=== PATIENT | female | born 1960 | race Caucasian/White ===

== ENCOUNTER 2022-01-31 03:14 | Emergency (ER) | payer BC, OTHER ==
[~2022-01-31] VITALS: Ht 167.7 cm; Wt 60.3 kg
[2022-01-31 03:53] LABS: COLOR,URINE YELLOW
[2022-01-31 03:54] LABS: CLARITY,URINE CLEAR; GLUCOSE, URINE (UA) NEGATIVE (NEGATIVE); KETONES,URINE NEGATIVE (NEGATIVE); LEUKOCYTE ESTERASE ,URINE 2+ (NEGATIVE); NITRITE,URINE NEGATIVE (NEGATIVE); PH,URINE 6.5 (5-9); PROTEIN,URINE TRACE (NEGATIVE)
[2022-01-31 03:55] LABS: BILIRUBIN,URINE 1+ (NEGATIVE)
--- NOTE | 2022-01-31 03:56 | ED GU-Female ---
General Chief Complaint: - Reproductive Stated Complaint: BURNING WHILE URINATING,FREQUENT URINATION Source: patient History of Present Illness Date Seen by Provider: Jan 31, 2022 Time Seen by Provider: 03:23 Initial Comments PT ARRIVES VIA POV C/O UTI SYMPTOMS SINCE WEDNESDAY MORNING 01/29/22--MUCH PAIN AND BURNING, URGENCY AND FREQUENCY ON URINATION, INCOMPLETE EMPTYING, AND LOWER ABDOMINAL DISCOMFORT NO BACK PAIN NO FEVER NO NAUSEA/VOMITING PT HAS BEEN AT [facility] FOR A COUPLE OF DAYS THIS WEEK HAS BEEN SKIING, FLOATING ON A RAFT ON THE TROY ALL DAY ON WEDNESDAY WOKE UP WEDNESDAY MORNING WITH THESE SYMPTOMS HAS NOT BEEN ABLE TO SLEEP OR SIT DUE TO DISCOMFORT HAS NOT HAD A UTI IN MANY YEARS AND WAS NEVER THIS BAD NO VAGINAL SYMPTOMS NO RELIEF WITH [facility] Wednesday. PT IS HERE VISITING FOR THE WEEKEND FROM [place]--FOR MULTIPLE REUNIONS Allergies and Home Medications Allergies Coded Allergies: No Known Drug Allergies (Unverified , 01/31/22) Patient Home Medication List Home Medication List Reviewed: Yes Ciprofloxacin HCl (Ciprofloxacin HCl) 500 Mg Tablet, 500 MG PO BID Prescribed by: JL ESQUIVEL on 01/31/22404 Ketorolac Tromethamine (Ketorolac Tromethamine) 10 Mg Tablet, 10 MG PO Q6H Prescribed by: JL ESQUIVEL on 01/31/22404 Phenazopyridine HCl (Pyridium) 200 Mg Tablet, 1 TAB PO TID Prescribed by: JL ESQUIVEL on 01/31/22404 Review of Systems Review of Systems Constitutional: no symptoms reported Respiratory: no symptoms reported Cardiovascular: no symptoms reported Genitourinary: see HPI Musculoskeletal: no symptoms reported Skin: no symptoms reported Psychiatric/Neurological: No Symptoms Reported Past Hstmycp-[id number]-[id number] Hx Patient Social History Tobacco Use?: No Use of E-Cig and/or Vaping dev: No Substance use?: No Alcohol Use?: No Pt feels they are or have been: No Immunizations Up To Date Influenza Vaccine Up-to-Date: Yes; Up-to-Date Past Medical History Surgeries: Yes Breast, Section, Tubal Ligation Respiratory: No Cardiac: No Neurological: No : 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 oz. kg; BMI Method: General Appearance: WD/WN, no apparent distress, other (STANDING UP, PACING, HOLDING LOWER ABDOMEN/GENITAL AREA. LOOKS UNCOMFORTABLE) Cardiovascular: regular rate, rhythm, no murmur Respiratory: normal breath sounds Gastrointestinal: normal bowel sounds, soft, tenderness (MILD SUPRAPUBIC TENDERNESS) Back: no CVA tenderness Extremities: normal inspection, normal capillary refill Neurologic/Psychiatric: no motor/sensory deficits, alert, oriented x 3 Skin: normal color, warm/dry Progress/Results/Core Measures Suspected Sepsis SIRS Temperature: Pulse: Respiratory Rate: Blood Pressure / Mean: Results/Orders Lab Results Laboratory Tests Test 01/31/22 03:35 Range/Units Urine Color YELLOW Urine Clarity CLEAR Urine pH 6.5 5-9 Urine Specific [place] 1.020 1.016-1.022 Urine Protein TRACE H NEGATIVE Urine Glucose (UA) NEGATIVE NEGATIVE Urine Ketones NEGATIVE NEGATIVE Urine Nitrite NEGATIVE NEGATIVE Urine Bilirubin 1+ H NEGATIVE Urine Urobilinogen 0.2 < = 1.0 MG/DL Urine Leukocyte Esterase 2+ H NEGATIVE Urine RBC (Auto) 2+ H NEGATIVE Urine RBC 2-5 H /HPF Urine WBC 10-25 H /HPF Urine Crystals NONE /LPF Urine Bacteria FEW H /HPF Urine Casts NONE /LPF Urine Mucus NEGATIVE /LPF Urine Culture Indicated YES My Orders Orders - JL ESQUIVEL DO Ua Culture If Indicated (01/31/22 03:22) Urine Culture (01/31/22 03:35) Ceftriaxone (Rocephin) (01/31/22 04:00) Ketorolac Injection (Toradol Injection) (01/31/22 04:00) Phenazopyridine Tablet (Pyridium Tablet) (01/31/22 04:00) Lidocaine 1% Inj 20 Ml (Xylocaine 1% Inj (01/31/22 04:00) Medications Given in ED Current Medications Medications Dose Ordered Sig/Kvng Route Start Time Stop Time Status Last Admin Dose Admin Ceftriaxone Sodium 1,000 mg ONCE ONCE IM 01/31/22 04:00 01/31/22 04:04 DC 01/31/22 04:13 1,000 MG Ketorolac Tromethamine 60 mg ONCE ONCE IM 01/31/22 04:00 01/31/22 04:04 DC 01/31/22 04:14 60 MG Lidocaine HCl 2.1 ml ONCE ONCE INJ 01/31/22 04:00 01/31/22 04:04 DC 01/31/22 04:14 2.1 ML Phenazopyridine HCl 200 mg ONCE ONCE PO 01/31/22 04:00 01/31/22 04:04 DC 01/31/22 04:13 200 MG Vital Signs/I&O 01/31/22 03:41 Temp 36.4 Pulse 80 Resp 18 B/P (MAP) Pulse Ox 99 O2 Delivery Room Air Capillary Refill : Departure Impression Primary Impression: Urinary tract infection Disposition: HOME, SELF-CARE Condition: Stable Departure-Patient Inst. Decision time for Depature: 04:03 Patient Instructions: Urinary Tract Infection, Adult (DC) Add. Discharge Instructions: LOTS OF CLEAR LIQUIDS--NO COFFEE, POP OR TEA TYLENOL NEEDED FOR PAIN FOLLOW UP WITH YOUR DR IN 2-3 DAYS IF NO BETTER, RETURN TO ER IF WORSE All discharge instructions reviewed with patient and/or family. Voiced understanding. Scripts Ketorolac Tromethamine (Ketorolac Tromethamine) 10 Mg Tablet 10 MG PO Q6H for Pain, #15 TAB Prov: JL ESQUIVEL DO 01/31/22 Phenazopyridine HCl (Pyridium) 200 Mg Tablet 1 TAB PO TID, #15 TAB Prov: JL ESQUIVEL DO 01/31/22 Ciprofloxacin HCl (Ciprofloxacin HCl) 500 Mg Tablet 500 MG PO BID, #14 TAB Prov: APOLINAR ESQUIVELA Tangela DO 01/31/22 JL ESQUIVEL DO Jan 31, 2022 03:56
[2022-01-31 03:58] LABS: BACTERIA,URINE FEW /HPF
[2022-01-31] MEDS ORDERED: PHENAZOPYRIDINE 100 MG (PYRIDIUM) TABLET PO ONE (04:00)
[2022-01-31] MEDS ORDERED: LIDOCAINE 1% INJ 20 ML VIAL INJ ONE (04:00)
[2022-01-31] MEDS ORDERED: KETOROLAC 60 MG/2 ML VIAL IM ONE (04:00)
[2022-01-31] MEDS ORDERED: cefTRIAXone 1,000 MG VIAL IM ONE (04:00)
[2022-01-31] MEDS ORDERED: CIPR500T5 PO (04:05)
[2022-01-31] MEDS ORDERED: KETO10TA PO (04:05)
[2022-01-31] MEDS ORDERED: PHEN-640 PO (04:05)
== END 2022-01-31 04:21 | disposition home or self-care (01) ==
LOC: ER 03:17
DX: N39.0 Urinary tract infection, site not specified (principal)
CPT/HCPCS: 81000; 87077; 87088; 87186; 99282